=== PATIENT | male | born 1985 | race Caucasian/White ===

== ENCOUNTER 2021-02-10 16:05 | Emergency (ER) | payer MEDICAID, OTHER ==
[~2021-02-10] VITALS: Ht 190.5 cm; Wt 136.1 kg
[~2021-02-10 16:05] MED LIST: GUAI100S25 PO
[2021-02-10] MEDS ORDERED: iohexol 300mg/ml 100ml inj. ONE (16:28)
[2021-02-10] MEDS ORDERED: fentaNYL/PF 50MCG/1 ML 2ML syringe IV ONE ×2 (16:30→17:40)
--- NOTE | 2021-02-10 16:32 | NUR ---
FAST PERFORMED BY = NEGATIVE
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
--- NOTE | 2021-02-10 16:50 | NUR ---
PT TO CT ON MONITOR ACCOMPANIED BY RN
--- NOTE | 2021-02-10 16:50 | NUR ---
[facility] CASE NUMBER [id number]
--- NOTE | 2021-02-10 16:51 | NUR ---
[facility] AT BEDSIDE
[2021-02-10] MEDS ORDERED: propofol 10mg/ml 20ml vial IV ONE (17:10)
[2021-02-10] MEDS ORDERED: ketamine 50 mg/ml 10ml vial IV ONE (17:10)
[2021-02-10] MEDS ORDERED: LIDOcaine 1% 30ml preserv. free vial IJ STA (17:12)
[2021-02-10 17:14] LABS: ALANINE AMINOTRANSFERASE 91 U/L (12-78); ALBUMIN 3.8 G/DL (3.4-5.0); ALKALINE PHOSPHATASE 92 IU/L (46-116); ANION GAP 13 (8-16); ASPARTATE AMINO TRANSFERASE 90 U/L (10-37); BILIRUBIN,TOTAL 0.3 MG/DL (0.1-1.0); BLOOD UREA NITROGEN 12 MG/DL (7-18); BUN/CREATININE RATIO 12.6 (5.4-32.0); CALCIUM 8.5 MG/DL (8.5-10.1); CHLORIDE 107 MMOL/L (99-107); CREATININE 0.95 MG/DL (0.60-1.10); GLUCOSE 124 MG/DL (70-104); POTASSIUM 3.5 MMOL/L (3.5-5.1); SODIUM 144 MMOL/L (135-145); TOTAL CARBON DIOXIDE 23.6 MMOL/L (24-32); TOTAL PROTEIN 7.7 G/DL (6.4-8.2); eGFR 90 ML/MIN
[2021-02-10 17:25] LABS: BASOPHILS # (AUTO) 0.1 X10'3 (0-0.2); BASOPHILS % (AUTO) 0.8 % (0-1); EOSINOPHILS # (AUTO) 0.2 X10'3 (0-0.9); EOSINOPHILS % (AUTO) 2.5 % (0-6); HEMATOCRIT 41.7 % (42.0-52.0); HEMOGLOBIN 14.5 g/dl (14.0-17.9); LYMPHOCYTES # (AUTO) 2.6 X10'3 (1.1-4.8); MEAN CORPUSCULAR HEMOGLOBIN 31.1 PG (27.0-31.0); MEAN CORPUSCULAR HGB CONC 34.9 g/dL (33.0-36.5); MEAN CORPUSCULAR VOLUME 89.2 FL (78-98); MEAN PLATELET VOLUME 7.3 FL (7.4-10.4); MONOCYTES # (AUTO) 0.5 X10'3 (0-0.9); MONOCYTES % (AUTO) 6.1 % (2-12); NEUTROPHILS # (AUTO) 5.3 X10'3 (1.8-7.7); NEUTROPHILS % (AUTO) 60.6 % (42-75); PLATELET COUNT 326 X10'3 (140-440); RED BLOOD COUNT 4.67 X10'6 (4.70-6.10); RED CELL DISTRIBUTION WIDTH 14.1 % (11.5-14.5); WHITE BLOOD COUNT 8.8 X10'3 (4.5-11.0)
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
[2021-02-10 19:48] VITALS: BP 135/78
== END 2021-02-10 19:51 | disposition short-term general hospital (02) ==
LOC: ER 16:06
DX: S52.512A Displaced fracture of left radial styloid process, initial encounter for closed fracture (principal); S61.210A Laceration without foreign body of right index finger without damage to nail, initial encounter; S27.321A Contusion of lung, unilateral, initial encounter; S30.0XXA Contusion of lower back and pelvis, initial encounter; Z20.822 Contact with and (suspected) exposure to COVID-19; V29.9XXA Motorcycle rider (driver) (passenger) injured in unspecified traffic accident, initial encounter; R20.0 Anesthesia of skin; Y93.89 Activity, other specified; Y92.89 Other specified places as the place of occurrence of the external cause; Y99.8 Other external cause status; M25.532 Pain in left wrist; Z98.890 Other specified postprocedural states; Z72.89 Other problems related to lifestyle; Z79.899 Other long term (current) drug therapy
CPT/HCPCS: 25605; 36415; 70450; 71045; 71260; 72125; 73100; 73110; 73140; 74177; 80053; 85025; 85610; 87635; 93005; 94799; 96374; 96376; 99151; 99291; 99292; C9803; J2001; J2704; J3010; Q9967; 94760; 99285; J3490